=== PATIENT | male | born 1950 | race African-American/Black ===

== ENCOUNTER 2021-01-23 19:36 | Inpatient (IN) | payer MEDICARE ==
[~2021-01-23] VITALS: Ht 182.9 cm; Wt 108.9 kg
[~2021-01-23 19:36] MED LIST: ACULAR 0.5% OP S5 ML EYEBOTH; CELEXA40 MG PO; GLUCOPHAGE1000 MG PO; PLAVIX 75 MG TA75 MG PO; ZOCOR20 MG PO
[2021-01-23 20:08] LABS: HEMOGLOBIN 13.9 gm/dl (14.0-17.5); RED BLOOD COUNT 4.47 M/UL (4.20-5.50); WHITE BLOOD COUNT 7.8 K/UL (4.5-11.0)
[2021-01-23 20:22] LABS: BUN/CREATININE RATIO 15 (0-10)
[2021-01-24] MEDS ORDERED: LOTRIMIN CREAM15 GM TP (08:50)
[2021-01-24] MEDS ORDERED: FARXIGA10 MG PO (08:51)
[2021-01-24] MEDS ORDERED: HYDROCHLOROTH12.5 M1 PO (08:51)
[2021-01-24] MEDS ORDERED: NASALIDE INH SO25 ML (08:52)
[2021-01-24] MEDS ORDERED: PEPCID20 MG PO (08:53)
[2021-01-24] MEDS ORDERED: ISOSORBIDE MONO30 MG PO (08:53)
[2021-01-24] MEDS ORDERED: LOPRESSOR 25 MG25 MG PO (08:53)
[2021-01-24] MEDS ORDERED: DULCOLAX5 MG PO (08:54)
[2021-01-25 02:34] LABS: HEMOGLOBIN 13.3 gm/dl (14.0-17.5); RED BLOOD COUNT 4.28 M/UL (4.20-5.50)
[2021-01-25 02:45] LABS: BUN/CREATININE RATIO 13 (0-10)
[2021-01-26 03:58] LABS: HEMOGLOBIN 12.5 gm/dl (14.0-17.5); RED BLOOD COUNT 4.06 M/UL (4.20-5.50); WHITE BLOOD COUNT 7.2 K/UL (4.5-11.0)
[2021-01-26 04:30] LABS: BUN/CREATININE RATIO 18 (0-10)
[2021-01-27 03:31] LABS: HEMOGLOBIN 11.5 gm/dl (14.0-17.5); RED BLOOD COUNT 3.78 M/UL (4.20-5.50); WHITE BLOOD COUNT 5.9 K/UL (4.5-11.0)
[2021-01-27 03:45] LABS: BUN/CREATININE RATIO 15 (0-10)
[2021-01-28 07:52] LABS: HEMOGLOBIN 11.7 gm/dl (14.0-17.5)
[2021-01-28 08:13] LABS: BUN/CREATININE RATIO 10 (0-10)
[2021-01-28] MEDS ORDERED: LOPRESSOR 25 MG25 MG PO (09:36)
[2021-01-28] MEDS ORDERED: LISINOPRIL10 MG PO (09:36)
[2021-01-28] MEDS ORDERED: ASPIRIN EC81 MG PO (09:36)
[2021-01-28] MEDS ORDERED: ATORVASTATIN CA20 MG PO (09:36)
[2021-01-28] MEDS ORDERED: HYDROCHLOROTHIA25 MG PO (09:36)
[2021-01-28] MEDS ORDERED: FLOMAX 0.4 MG0.4 MG PO (09:36)
[2021-01-28] MEDS ORDERED: K-DUR TAB 20 M20 MEQ PO (09:51)
== END 2021-01-28 12:40 | disposition home or self-care (01) | DRG 982 ==
LOC: ER1 19:36 → PROG CARE 21:07 → M/S 21:07 → CDU 21:07 → M/S 01-24 10:20 → PROG CARE 01-24 15:47
PROVIDERS: Internal Medicine; Internal Medicine Interventional Cardiology; Physician Assistant; ADMIT Internal Medicine
PROC: 027034Z Dilation of Coronary Artery, One Artery with Drug-eluting Intraluminal Device, Percutaneous Approach (ICD-10-PCS; principal; 2021-01-24)
PROC: 4A023N7 Measurement of Cardiac Sampling and Pressure, Left Heart, Percutaneous Approach (ICD-10-PCS; 2021-01-24)
PROC: 0T9B70Z Drainage of Bladder with Drainage Device, Via Natural or Artificial Opening (ICD-10-PCS; 2021-01-24)
DX: T83.83XA Hemorrhage due to genitourinary prosthetic devices, implants and grafts, initial encounter (principal); S37.33XA Laceration of urethra, initial encounter; I25.110 Atherosclerotic heart disease of native coronary artery with unstable angina pectoris; K50.90 Crohn's disease, unspecified, without complications; R33.9 Retention of urine, unspecified; I10 Essential (primary) hypertension; E78.5 Hyperlipidemia, unspecified; E87.6 Hypokalemia; F41.9 Anxiety disorder, unspecified; E11.51 Type 2 diabetes mellitus with diabetic peripheral angiopathy without gangrene; G89.29 Other chronic pain; M19.90 Unspecified osteoarthritis, unspecified site; F32.9 Major depressive disorder, single episode, unspecified; I16.0 Hypertensive urgency; Z79.84 Long term (current) use of oral hypoglycemic drugs; Z88.8 Allergy status to other drugs, medicaments and biological substances; Z83.3 Family history of diabetes mellitus; Z82.49 Family history of ischemic heart disease and other diseases of the circulatory system; Z95.5 Presence of coronary angioplasty implant and graft
CPT/HCPCS: 36415; 71045; 80048; 80053; 80061; 81001; 82550; 82553; 82962; 83874; 83880; 84132; 84484; 85014; 85018; 85025; 85347; 93005; 96372; 99285; C1725; C1760; C1769; C1874; C1887; C9600; G0378; J0360; J0461; J1644; J2250; J3010; J7030; J7040; Q9963; Q9967; U0002

== ENCOUNTER 2021-02-10 16:23 | Observation (INO) | payer MEDICARE ==
[~2021-02-10] VITALS: Ht 182.9 cm; Wt 111.1 kg
[~2021-02-10 16:23] MED LIST changes: +ASPIRIN EC81 MG PO; +ATORVASTATIN CA20 MG PO; +DULCOLAX5 MG PO; +FARXIGA10 MG PO; +FLOMAX 0.4 MG0.4 MG PO; +HYDROCHLOROTH12.5 M1 PO; +HYDROCHLOROTHIA25 MG PO; +ISOSORBIDE MONO30 MG PO; +K-DUR TAB 20 M20 MEQ PO; +LISINOPRIL10 MG PO; +LOPRESSOR 25 MG25 MG PO; +LOTRIMIN CREAM15 GM TP; +NASALIDE INH SO25 ML; +PEPCID20 MG PO
[2021-02-10 17:20] LABS: HEMOGLOBIN 14.6 gm/dl (14.0-17.5); RED BLOOD COUNT 4.6 M/UL (4.20-5.50); WHITE BLOOD COUNT 8.2 K/UL (4.5-11.0)
[2021-02-10 17:39] LABS: BUN/CREATININE RATIO 14 (0-10)
[2021-02-10] MEDS ORDERED: LOPRESSOR 25 MG25 MG PO (20:17)
[2021-02-11 05:30] LABS: BUN/CREATININE RATIO 18 (0-10)
[2021-02-12] MEDS ORDERED: PEPCID20 MG PO (12:10)
[2021-02-12 13:34] LABS: BUN/CREATININE RATIO 14 (0-10)
== END 2021-02-12 16:51 | disposition home or self-care (01) ==
LOC: ER1 16:23 → CDU 18:55 → MED SURG 4 02-11 14:49
PROVIDERS: Internal Medicine; Physician Assistant; ADMIT Internal Medicine
DX: I95.1 Orthostatic hypotension (principal); E86.0 Dehydration; N17.9 Acute kidney failure, unspecified; I25.10 Atherosclerotic heart disease of native coronary artery without angina pectoris; I10 Essential (primary) hypertension; E78.5 Hyperlipidemia, unspecified; E11.9 Type 2 diabetes mellitus without complications; F32.9 Major depressive disorder, single episode, unspecified; F41.9 Anxiety disorder, unspecified; N40.0 Benign prostatic hyperplasia without lower urinary tract symptoms; R53.1 Weakness; R63.0 Anorexia; E66.9 Obesity, unspecified; Z68.33 Body mass index [BMI] 33.0-33.9, adult; Z68.1 Body mass index [BMI] 19.9 or less, adult; Z95.5 Presence of coronary angioplasty implant and graft; Z20.822 Contact with and (suspected) exposure to COVID-19; Z79.84 Long term (current) use of oral hypoglycemic drugs; Z79.899 Other long term (current) drug therapy; Z88.8 Allergy status to other drugs, medicaments and biological substances
CPT/HCPCS: 36415; 71045; 80048; 80053; 82550; 82553; 82607; 82746; 82962; 83735; 83874; 84100; 84132; 84439; 84443; 84484; 85025; 93005; 96372; 96374; 96375; 96376; 97161; 97165; 99285; G0378; J1650; J3475; J7030; U0002

== ENCOUNTER 2021-05-17 13:06 | Observation (INO) | payer MEDICARE ==
[~2021-05-17] VITALS: Ht 182.9 cm; Wt 110.2 kg
[2021-05-17 13:42] LABS: HEMOGLOBIN 13.1 gm/dl (14.0-17.5); RED BLOOD COUNT 4.14 M/UL (4.20-5.50); WHITE BLOOD COUNT 7.1 K/UL (4.5-11.0)
[2021-05-17 14:14] LABS: BUN/CREATININE RATIO 19 (0-10)
[2021-05-17] MEDS ORDERED: FAMOTIDINE20 MG PO (20:29)
[2021-05-17] MEDS ORDERED: HYDROCHLOROTHIA25 MG PO (20:29)
[2021-05-17] MEDS ORDERED: PROTONIX 40 MG40 M1 PO (20:31)
[2021-05-17] MEDS ORDERED: LISINOPRIL10 MG PO (20:32)
[2021-05-18 06:53] LABS: HEMOGLOBIN 12.8 gm/dl (14.0-17.5); RED BLOOD COUNT 4.09 M/UL (4.20-5.50); WHITE BLOOD COUNT 6.5 K/UL (4.5-11.0)
[2021-05-18 07:23] LABS: BUN/CREATININE RATIO 18 (0-10)
[2021-05-18] MEDS ORDERED: DOCUSATE SODIU100 MG PO (11:15)
[2021-05-18] MEDS ORDERED: MI-ACID80 MG PO (11:15)
[2021-05-18] MEDS ORDERED: HYDRALAZINE HCL25 MG PO (11:15)
== END 2021-05-18 17:55 | disposition home or self-care (01) ==
LOC: ER1 13:06 → MED SURG 4 18:01 → CDU 18:01 → MED SURG 4 20:13
PROVIDERS: Family Medicine; Physician Assistant; ADMIT Internal Medicine
DX: N17.9 Acute kidney failure, unspecified (principal); N28.89 Other specified disorders of kidney and ureter; N28.1 Cyst of kidney, acquired; I77.811 Abdominal aortic ectasia; I72.8 Aneurysm of other specified arteries; K57.90 Diverticulosis of intestine, part unspecified, without perforation or abscess without bleeding; I25.10 Atherosclerotic heart disease of native coronary artery without angina pectoris; I10 Essential (primary) hypertension; E78.5 Hyperlipidemia, unspecified; E11.9 Type 2 diabetes mellitus without complications; N40.0 Benign prostatic hyperplasia without lower urinary tract symptoms; F41.9 Anxiety disorder, unspecified; F32.9 Major depressive disorder, single episode, unspecified; Z20.822 Contact with and (suspected) exposure to COVID-19; Z79.84 Long term (current) use of oral hypoglycemic drugs; Z79.899 Other long term (current) drug therapy; Z88.8 Allergy status to other drugs, medicaments and biological substances
CPT/HCPCS: 36415; 80048; 80053; 81001; 82550; 82553; 82962; 83874; 84484; 85025; 87086; 93005; 96374; 96375; 99285; G0378; J2270; J2405; J7030; Q9967; U0002

== ENCOUNTER 2021-10-03 15:11 | Emergency (ER) | payer OTHER ==
[~2021-10-03 15:11] MED LIST changes: +DOCUSATE SODIU100 MG PO; +FAMOTIDINE20 MG PO; +HYDRALAZINE HCL25 MG PO; +MI-ACID80 MG PO; +PROTONIX 40 MG40 M1 PO
== END 2021-10-03 18:50 | disposition home or self-care (01) ==
LOC: ER1 15:11
DX: G44.209 Tension-type headache, unspecified, not intractable (principal); V89.2XXA Person injured in unspecified motor-vehicle accident, traffic, initial encounter
CPT/HCPCS: 70450; 96372; 96374; 99284; J1885; J2765

== ENCOUNTER → 2022-08-25 | Outpatient (CLI) | payer MEDICARE | LOC: US 13:39 | DX: H34.212 Partial retinal artery occlusion, left eye (principal) | CPT/HCPCS: 93880 ==